=== PATIENT | female | born 1995 | race Caucasian/White ===

== ENCOUNTER 2017-09-17 13:43 | Emergency (ER) | payer OTHER ==
--- NOTE | 2017-09-17 14:48 | ED Physician Documentation ---
PD HPI LOWER EXT INJURY - Stated complaint Stated Complaint: ANKLE INJURY - Chief complaint Chief Complaint: Ext Problem - History obtained from History obtained from: Patient, Family - History of Present Illness PD HPI LOW EXT INJURY LOCATION: Left, Ankle Type of injury: Twist (inversion injury) Where injury occurred: [place] Timing - onset: How many hours ago (2) Timing - duration: Hours (2) Timing - details: Abrupt onset Pain level max: 8 Pain level now: 6 Improved by: Rest, Ice, Immobilization Worsened by: Moving, Palpating Associated symptoms: Swelling. No: Numbness, Tingling Similar symptoms before: Diagnosis (ankle sprain) Recently seen: Not recently seen Review of Systems Constitutional: denies: Fever, Chills : denies: Now EGA Skin: denies: Rash Musculoskeletal: denies: Neck pain, Back pain Neurologic: denies: Focal weakness, Numbness, Head injury PD PAST MEDICAL HISTORY - Past Medical History Past Medical History: No - Past Surgical History Past Surgical History: No - Present Medications Home Medications: Ambulatory Orders Medication Instructions Recorded Confirmed Etonogestrel [Nexplanon] 68 mg 09/17/17 Meloxicam [Mobic] 7.5 mg PO BID PRN #30 tablet 09/17/17 - Allergies Allergies/Adverse Reactions: Allergies Allergy/AdvReac Type Severity Reaction Status Date / Time No Known Drug Allergies Allergy Verified 04/26/15 08:43 - Social History Does the pt smoke?: No Smoking Status: Never smoker Does the pt drink ETOH?: No Does the pt have substance abuse?: No - Immunizations Immunizations are current?: Yes PD ED PE NORMAL - Vitals Vital signs reviewed: Yes - General General: Alert and oriented X 3 - HEENT HEENT: Moist mucous membranes - Derm Derm: Warm and dry - Extremities Extremities: Other (L ankle - Swelling and tenderness over the lateral malleolus. Otherwise normal examination of the foot and ankle. No tenderness at the base of the fifth metatarsal. Neurovascularly intact.) - Neuro Neuro: Alert and oriented X 3 Results - Vitals Vitals: Vital Signs - 24 hr 09/17/17 09/17/17 13:54 15:52 Temperature 36.5 C 36.6 C Heart Rate 91 93 Respiratory 16 16 Rate Blood Pressure 120/72 125/76 O2 Saturation 98 98 Oxygen O2 Source Room air - Rads (name of study) Left ankle x-ray Radiology: Prelim report reviewed, EMP read contemporaneously, See rad report ( Soft tissue swelling without fracture) PD MEDICAL DECISION MAKING - ED course Complexity details: reviewed results, re-evaluated patient, considered differential, d/w patient ED course: Patient is a 21-year-old female who presents to the emergency department with a left ankle sprain. No acute findings on x-ray. Placed in a splint and given crutches. Counseled regarding missed fractures and may need repeat xrays if not improving. Patient counseled regarding signs and symptoms for which I believe and urgent re-evaluation would be necessary. Patient with good understanding of and agreement to plan and is comfortable going home at this time This document was made in part using voice recognition software. While efforts are made to proofread this document, sound alike and grammatical errors may occur. - Sepsis Event Vital Signs: Vital Signs - 24 hr 09/17/17 09/17/17 13:54 15:52 Temperature 36.5 C 36.6 C Heart Rate 91 93 Respiratory 16 16 Rate Blood Pressure 120/72 125/76 O2 Saturation 98 98 Oxygen O2 Source Room air Departure - Departure Disposition: 01 Home, Self Care Clinical Impression: Left ankle sprain Qualifiers: Encounter type: initial encounter Involved ligament of ankle: unspecified ligament Qualified Code(s): S93.402A - Sprain of unspecified ligament of left ankle, initial encounter Condition: Good Instructions: ED Sprain Ankle W X Ray Follow-Up: Faviola Villeda PA [Primary Care Provider] - Within 1 week Prescriptions: Meloxicam [Mobic] 7.5 mg PO BID PRN #30 tablet PRN Reason: Pain Comments: Return if you worsen. You may bear weight as tolerated. Wear the splint as needed. Discharge Date/Time: 09/17/17 15:52
--- NOTE | 2017-09-17 15:16 | XRAY Report ---
Procedure Date: 09/17/2017 Accession Number: [id number] / [id number] Procedure: XR - Ankle 3 View LT CPT Code: FULL RESULT: EXAM: LEFT ANKLE RADIOGRAPHY EXAM DATE: 09/17/2017 03:06 PM. CLINICAL HISTORY: Fall, l ankle pain, lat mall. COMPARISON: 01/06/2012. TECHNIQUE: 3 views. FINDINGS: Bones: Normal. No fractures or bone lesions. Joints: Normal. No effusion. No subluxations. The ankle mortise is normally aligned. Soft Tissues: Lateral soft tissue swelling, increased. IMPRESSION: 1. No osseous abnormality. 2. Lateral ankle soft tissue swelling RADIA
[2017-09-17 15:53] VITALS: BP 125/76
== END 2017-09-17 15:52 | disposition home or self-care (01) ==
LOC: ED 13:43
DX: S93.402A Sprain of unspecified ligament of left ankle, initial encounter (principal); X50.1XXA Overexertion from prolonged static or awkward postures, initial encounter; Y92.830 Public park as the place of occurrence of the external cause
CPT/HCPCS: 99283

== ENCOUNTER 2021-05-08 21:26 | Emergency (ER) | payer OTHER ==
[2021-05-08 21:50] LABS: BASOPHILS # (AUTO) 0.1 10^3/uL (0.0-0.1); BASOPHILS % (AUTO) 0.4 %; EOSINOPHILS # (AUTO) 0.4 10^3/uL (0.0-0.7); EOSINOPHILS % (AUTO) 2.9 %; HCT - HEMATOCRIT 41.8 % (37.0-47.0); HGB - HEMOGLOBIN 13.5 g/dL (12.0-16.0); LYMPHOCYTES # (AUTO) 2.8 10^3/uL (1.5-3.5); LYMPHOCYTES % (AUTO) 22.4 %; MEAN CORPUSCULAR HEMOGLOBIN 27.1 pg (27.0-31.0); MEAN CORPUSCULAR HGB CONC 32.3 g/dL (32.0-36.0); MEAN CORPUSCULAR VOLUME 83.9 fL (81.0-99.0); MEAN PLATELET VOLUME 9.5 fL (7.9-10.8); MONOCYTES # (AUTO) 1.3 10^3/uL (0.0-1.0); MONOCYTES % (AUTO) 9.9 %; NEUTROPHILS # (AUTO) 8.1 10^3/uL (1.5-6.6); NEUTROPHILS % (AUTO) 64.1 %; PLT - PLATELET COUNT 414 10^3/uL (130-450); RED BLOOD COUNT 4.98 10^6/uL (4.20-5.40); RED CELL DISTRIBUTION WIDTH 14.1 % (12.0-15.0); WHITE BLOOD COUNT 12.6 x10^3/uL (4.8-10.8)
[2021-05-08 22:06] LABS: ALBUMIN 4.5 g/dL (3.2-5.5); ALBUMIN/GLOBULIN RATIO 1.1 (1.0-2.2); BILIRUBIN,TOTAL 0.4 mg/dL (0.2-1.0); CALCIUM 9.3 mg/dL (8.5-10.3); CREATININE 0.7 mg/dL (0.4-1.0); POTASSIUM 3.3 mmol/L (3.5-5.0); TOTAL PROTEIN 8.5 g/dL (6.7-8.2)
--- NOTE | 2021-05-08 22:11 | XRAY Report ---
PROCEDURE: Chest 1 View X-Ray INDICATIONS: Chest pain TECHNIQUE: One view of the chest was acquired. COMPARISON: None FINDINGS: Surgical changes and devices: None. Lungs and pleura: No pleural effusions or pneumothorax. Lungs are clear. Mediastinum: Mediastinal contours appear normal. Heart size is normal. Bones and chest wall: No suspicious bony lesions. Overlying soft tissues appear unremarkable. IMPRESSION: No acute cardiopulmonary disease process. Reviewed by: Zuleima Bess MD, PhD on 05/08/2021 10:10 PM PDT Approved by: Zuleima Bess MD, PhD on 05/08/2021 10:10 PM PDT Station ID: [id number]
[2021-05-08 22:37] LABS: BILIRUBIN,URINE NEGATIVE (NEGATIVE); GLUCOSE, URINE (UA) NEGATIVE (NEGATIVE); KETONES,URINE (UA) NEGATIVE (NEGATIVE); LEUKOCYTE ESTERASE, URINE NEGATIVE (NEGATIVE); NITRITE,URINE NEGATIVE (NEGATIVE); OCCULT BLOOD,URINE LARGE (NEGATIVE); PROTEIN,URINE NEGATIVE (NEGATIVE); UROBILINOGEN,URINE 0.2 (NORMAL) E.U./dL (NORMAL)
[2021-05-08 22:42] LABS: CLARITY,URINE CLEAR (CLEAR); HCG UR QUAL NEGATIVE
[2021-05-08 22:51] LABS: BACTERIA,URINE Few /HPF (None Seen); RBC,URINE 0-5 /HPF (0-5); SQUAMOUS EPITHELIAL CELL,UR MOD Squamous (<= Few); WBC,URINE 0-3 /HPF (0-5)
--- NOTE | 2021-05-08 23:48 | ED Physician Documentation ---
History of Present Illness - Stated complaint Stated Complaint: CP/SOA/HEADACHE/NAUSEA - Chief complaint Chief Complaint: Cardiac - History obtained from History obtained from: Patient - History of Present Illness Timing: How many days ago (2-3) Pain level max: 0 Pain level now: 0 Radiates to: does not radiate - Additonal information Additional information: c/o 2-3 days of chest discomfort, palpitations. Intermittent symptoms without inciting/exacerbating/ameliorating factors. The chest pain has a component of burning sensation and so she took an omeprazole thinking it might be GERD but this did not have any noticeable effect. Review of Systems Constitutional: reports: Reviewed and negative Cardiac: reports: Chest pain / pressure, Palpitations. denies: Pedal edema Respiratory: reports: Reviewed and negative GI: reports: Reviewed and negative : denies: Now EGA PD PAST MEDICAL HISTORY - Past Medical History Past Medical History: Yes GI: GERD Psych: Depression, Anxiety - Past Surgical History Past Surgical History: No - Present Medications Home Medications: Ambulatory Orders Medication Instructions Recorded Confirmed Etonogestrel [Nexplanon] 68 mg 09/17/17 Omeprazole Magnesium 20 mg PO DAILY 05/08/21 05/08/21 Sertraline HCl 200 mg PO DAILY 05/08/21 05/08/21 Metoprolol Tartrate [Lopressor] 25 mg PO DAILY #30 tablet 05/09/21 - Allergies Allergies/Adverse Reactions: Allergies Allergy/AdvReac Type Severity Reaction Status Date / Time No Known Drug Allergies Allergy Verified 05/08/21 21:30 - Social History Does the pt smoke?: No Smoking Status: Never smoker Does the pt drink ETOH?: No Does the pt have substance abuse?: No - Immunizations Immunizations are current?: Yes - POLST Patient has POLST: No PD ED PE NORMAL - Vitals Vital signs reviewed: Yes - General General: Alert and oriented X 3, No acute distress, Well developed/nourished - Cardiac Cardiac: No murmur, No gallop, No rub - Respiratory Respiratory: No respiratory distress, Clear bilaterally - Abdomen Abdomen: Soft, Non tender - Extremities Extremities: No edema PD ED PE EXPANDED - Cardiac Cardiac: Tachy, Regular Rhythm (frequent ) Results - Vitals Vitals: Oxygen O2 Source Room air - EKG (time done) No standard instances Rate: Rate (enter#) (108) Rhythm: Sinus tachycardia [place]: Normal Intervals: Normal [place] QRS: Normal Ischemia: Normal ST segments - Labs Labs: Laboratory Tests 05/08/21 05/08/21 05/08/21 21:38 21:38 21:41 WBC 12.6 H RBC 4.98 Hgb 13.5 Hct 41.8 MCV 83.9 MCH 27.1 MCHC 32.3 RDW 14.1 Plt Count 414 MPV 9.5 Neut # (Auto) 8.1 H Lymph # (Auto) 2.8 [place] # (Auto) 1.3 H Eos # (Auto) 0.4 Baso # (Auto) 0.1 Absolute Nucleated RBC 0.00 Nucleated RBC % 0.0 D-Dimer Sodium Potassium Chloride Carbon Dioxide Anion Gap BUN Creatinine Estimated GFR (MDRD) Glucose Calcium Total Bilirubin AST ALT Alkaline Phosphatase Troponin I High Sens Total Protein Albumin Globulin Albumin/Globulin Ratio Lipase TSH Urine Color YELLOW Urine Clarity CLEAR Urine pH 6.0 Ur Specific [place] 1.020 Urine Protein NEGATIVE Urine Glucose (UA) NEGATIVE Urine Ketones NEGATIVE Urine Occult Blood LARGE H Urine Nitrite NEGATIVE Urine Bilirubin NEGATIVE Urine Urobilinogen 0.2 (NORMAL) Ur Leukocyte Esterase NEGATIVE Urine RBC 0-5 Urine WBC 0-3 Ur Squamous Epith Cells MOD Squamous H Urine Bacteria Few Ur Microscopic Review INDICATED Urine Culture Comments NOT INDICATED Urine HCG, Qual NEGATIVE 05/08/21 05/08/21 05/09/21 21:41 21:41 00:36 WBC RBC Hgb Hct MCV MCH MCHC RDW Plt Count MPV Neut # (Auto) Lymph # (Auto) [place] # (Auto) Eos # (Auto) Baso # (Auto) Absolute Nucleated RBC Nucleated RBC % D-Dimer 256.2 H Sodium 138 Potassium 3.3 L Chloride 98 L Carbon Dioxide 27 Anion Gap 13.0 BUN 9 Creatinine 0.7 Estimated GFR (MDRD) 104 Glucose 109 H Calcium 9.3 Total Bilirubin 0.4 AST 21 ALT 26 Alkaline Phosphatase 48 Troponin I High Sens 2.4 Total Protein 8.5 H Albumin 4.5 Globulin 4.0 Albumin/Globulin Ratio 1.1 Lipase 32 TSH Urine Color Urine Clarity Urine pH Ur Specific [place] Urine Protein Urine Glucose (UA) Urine Ketones Urine Occult Blood Urine Nitrite Urine Bilirubin Urine Urobilinogen Ur Leukocyte Esterase Urine RBC Urine WBC Ur Squamous Epith Cells Urine Bacteria Ur Microscopic Review Urine Culture Comments Urine HCG, Qual 05/09/21 00:36 WBC RBC Hgb Hct MCV MCH MCHC RDW Plt Count MPV Neut # (Auto) Lymph # (Auto) [place] # (Auto) Eos # (Auto) Baso # (Auto) Absolute Nucleated RBC Nucleated RBC % D-Dimer Sodium Potassium Chloride Carbon Dioxide Anion Gap BUN Creatinine Estimated GFR (MDRD) Glucose Calcium Total Bilirubin AST ALT Alkaline Phosphatase Troponin I High Sens Total Protein Albumin Globulin Albumin/Globulin Ratio Lipase TSH 5.54 Urine Color Urine Clarity Urine pH Ur Specific [place] Urine Protein Urine Glucose (UA) Urine Ketones Urine Occult Blood Urine Nitrite Urine Bilirubin Urine Urobilinogen Ur Leukocyte Esterase Urine RBC Urine WBC Ur Squamous Epith Cells Urine Bacteria Ur Microscopic Review Urine Culture Comments Urine HCG, Qual - Rads (name of study) chest xray Radiology: Prelim report reviewed, See rad report PD MEDICAL DECISION MAKING - ED course Complexity details: reviewed results, re-evaluated patient, considered differential, d/w patient, d/w family ED course: Reassuring/nondiagnostic blood test results. Mild leukocytosis, mild hypokalemia (3.3, given KCL PO prior to d/c). She has frequent PACs and while in room it is clear that these are causing her sensation of intermittent palpitations. She has mild tachycardia (TSH is normal). She asks if anything can be prescribed for the PACs and she is agreeable to try low-dose metoprolol. I instructed her to follow up with her primary care provider if symptoms persist, as further testing might be indicated regarding the PACs as well as the chest pain. D-dimer is minimally above upper cut-off; it is 256.2, with upper normal of 255. This does not represent a significant finding and given her age and lack of risk factors, I have low suspicion for PE. Given low suspicion and d-dimer result, overall I feel there is more risk of performing CTA chest than potential benefit. I reviewed results of tests with patient. I encouraged her to follow up with her primary care provider, as further tests (at their discretion) might be needed. Return precautions discussed as well Departure - Departure Disposition: 01 Home, Self Care Clinical Impression: PAC (premature atrial contraction), Sinus tachycardia, Hypokalemia Chest pain Qualifiers: Chest pain type: unspecified Qualified Code(s): R07.9 - Chest pain, unspecified Condition: Good Instructions: ED Chest Pain Atypical Unkn Cause, ED Potassium Deficiency Prescriptions: Metoprolol Tartrate [Lopressor] 25 mg PO DAILY #30 tablet Comments: There are no concerning/significant findings on the tests tonight, including EKG, blood tests, and chest xray. Your heart rate has been a little fast and you have had frequent premature atrial contractions (PACs); as we discussed, these can cause aggravating symptoms but they are not dangerous. A prescription for metoprolol has been electronically submitted to [facility] in [place], and you were given a dose of this medication in the emergency department. This medication is most commonly used for control of high blood pressure, but I am prescribing it for you because it also slows the heart rate which, in turn, should lower the frequency of your PACs. As we discussed, you can increase the dose after 2-3 days if the initial dose of once per day is ineffective. If you increase the dose, you can either take 2 tablets once per day or 1 tablet twice per day. If the initial once-daily dose of one tablet seems to be working during the day but symptoms (palpitations) return in the evening/overnight, the twice per day option would be best. Discharge Date/Time: 05/09/21 02:18
[2021-05-09] MEDS ORDERED: POTASSIUM CHLORIDE 20 MEQ TABLET PO STA (00:25)
[2021-05-09] MEDS ORDERED: METOPROLOL TARTRATE 50 MG TABLET PO STA (01:54)
[2021-05-09 02:03] VITALS: BP 124/85
== END 2021-05-09 02:18 | disposition home or self-care (01) ==
LOC: ED 21:26
DX: I49.1 Atrial premature depolarization (principal); E87.6 Hypokalemia; R00.0 Tachycardia, unspecified
CPT/HCPCS: 36415; 71045; 80053; 81001; 81025; 83690; 84443; 84484; 85025; 85379; 93005; 99284; A9270; 81003; 87086

== ENCOUNTER 2023-05-09 08:00 | Outpatient (CLI) | payer OTHER | END 2023-05-09 23:59 | disposition home or self-care (01) | LOC: LAB.N 08:00 | PROVIDERS: ATTEND Physician Assistant | DX: Z11.1 Encounter for screening for respiratory tuberculosis (principal) | CPT/HCPCS: 81599; 86480 ==